=== PATIENT | male | born 1980 | race Caucasian/White ===

== ENCOUNTER 2020-08-22 00:28 | Emergency (ER) | payer SELFPAY ==
[~2020-08-22] VITALS: Ht 170.2 cm; Wt 77.3 kg
[2020-08-22 00:33] VITALS: BP 118/81; Ht 170.2 cm; Wt 77.3 kg
[2020-08-22 01:21] LABS: CALC OSMOLALITY 279 mosm/kg (275-300); CARBON DIOXIDE 25.7 mmol/L (21.0-32.0); CHLORIDE - SERUM 105 mmol/L (98-107); CREATININE - SERUM 1.1 mg/dL (0.6-1.3); GLUCOSE 108 mg/dL (74-106); POTASSIUM - SERUM 4.2 mmol/L (3.5-5.1); SODIUM 139 mmol/L (136-145); UREA NITROGEN 14 mg/dL (7-18); eGFR NON AFRICAN AMERICAN 78 mL/min (90-120)
[2020-08-22 01:22] LABS: APTT 29.4 SECONDS (22.8-39.4); BASOPHILS 0.4 % (0-2); EOSINOPHILS 2.8 % (0-7); HEMOGLOBIN 15.2 g/dL (13.5-17.5); IMMATURE GRANULOCYTES 0.3 % (0-5); INR 0.99 (0.85-1.17); LYMPHOCYTES 31.9 % (15-50); MCH 29.9 pg (26.0-34.0); MCV 90.6 fL (80.0-100.0); MEAN PLATELET VOLUME 8.7 fL (7.4-10.4); MONOCYTES 7.2 % (2-11); NEUTROPHILS 57.4 % (40-80); PLATELET COUNT 248 10x3/uL (130-400); RBC 5.08 10x6/uL (4.20-6.10); RDW 13.3 % (11.5-14.5); WBC 10.1 10x3/uL (4.8-10.8)
[2020-08-22 01:38] LABS: ALKALINE PHOSPHATASE 73 U/L (30-120); ALT (SGPT) 63 U/L (10-68); BILIRUBIN - TOTAL 0.29 mg/dL (0.2-1.3); CREATINE KINASE 120 UL (21-232); MAGNESIUM - SERUM 2.3 mg/dL (1.8-2.4); PROTEIN - SERUM 7.9 g/dL (6.4-8.2); TROPONIN-I < 0.017 ng/mL (0.000-0.060)
== END 2020-08-22 01:25 | disposition left against medical advice (07) ==
LOC: D.ER 00:28
PROVIDERS: Family Medicine
DX: F41.9 Anxiety disorder, unspecified (principal); K21.9 Gastro-esophageal reflux disease without esophagitis; R07.9 Chest pain, unspecified; Z53.29 Procedure and treatment not carried out because of patient's decision for other reasons; R06.02 Shortness of breath; R20.0 Anesthesia of skin

== ENCOUNTER 2020-08-22 10:28 | Emergency (ER) | payer MEDICAID ==
[~2020-08-22] VITALS: Ht 170.2 cm; Wt 78.2 kg
[2020-08-22 10:35] VITALS: Ht 170.2 cm; Wt 78.2 kg
[2020-08-22 10:48] LABS: BASOPHILS 0.3 % (0-2); EOSINOPHILS 1.5 % (0-7); HEMATOCRIT 46.1 % (42.0-54.0); HEMOGLOBIN 15.2 g/dL (13.5-17.5); IMMATURE GRANULOCYTES 0.3 % (0-5); MCH 29.9 pg (26.0-34.0); MCV 90.7 fL (80.0-100.0); MEAN PLATELET VOLUME 8.8 fL (7.4-10.4); MONOCYTES 8.7 % (2-11); NEUTROPHILS 62.2 % (40-80); PLATELET COUNT 246 10x3/uL (130-400); RBC 5.08 10x6/uL (4.20-6.10); RDW 13.7 % (11.5-14.5)
[2020-08-22 10:54] LABS: APTT 27.3 SECONDS (22.8-39.4); INR 0.96 (0.85-1.17); PROTIME 12.7 SECONDS (11.6-15.0)
[2020-08-22 10:58] LABS: CALC OSMOLALITY 281 mosm/kg (275-300); CALCIUM 9.2 mg/dL (8.5-10.1); CHLORIDE - SERUM 106 mmol/L (98-107); CREATININE - SERUM 1.2 mg/dL (0.6-1.3); GLUCOSE 104 mg/dL (74-106); POTASSIUM - SERUM 4.3 mmol/L (3.5-5.1); SODIUM 141 mmol/L (136-145); UREA NITROGEN 15 mg/dL (7-18); eGFR NON AFRICAN AMERICAN 71 mL/min (90-120)
[2020-08-22 11:25] LABS: ALBUMIN 4.2 g/dL (3.4-5.0); ALKALINE PHOSPHATASE 78 U/L (30-120); ALT (SGPT) 60 U/L (10-68); BILIRUBIN - TOTAL 0.58 mg/dL (0.2-1.3); CKMB 1.1 U/L (0.0-3.6); CREATINE KINASE 132 UL (21-232); MAGNESIUM - SERUM 2.3 mg/dL (1.8-2.4); PROTEIN - SERUM 7.9 g/dL (6.4-8.2); TROPONIN-I < 0.017 ng/mL (0.000-0.060)
[2020-08-22 12:45] LABS: BILIRUBIN NEGATIVE (NEGATIVE); KETONE NEGATIVE (NEGATIVE); NITRITE NEGATIVE (NEGATIVE); UROBILINOGEN NORMAL mg/dL (< 2)
[2020-08-22 12:48] LABS: UDS - AMPHET NEGATIVE QUAL (NEGATIVE); UDS - BARB NEGATIVE QUAL (NEGATIVE); UDS - BENZO NEGATIVE QUAL (NEGATIVE); UDS - COCAINE NEGATIVE QUAL (NEGATIVE); UDS - OPIATE NEGATIVE QUAL (NEGATIVE); UDS - PCP NEGATIVE QUAL (NEGATIVE); UDS - THC NEGATIVE QUAL (NEGATIVE)
[2020-08-22 13:33] VITALS: BP 123/85
== END 2020-08-22 13:32 | disposition home or self-care (01) ==
LOC: D.ER 10:28
PROVIDERS: Family Medicine
DX: R07.9 Chest pain, unspecified (principal); R55 Syncope and collapse